=== PATIENT | female | born 1985 | race Caucasian/White ===

== ENCOUNTER → 2022-10-10 08:35 | Outpatient (REF) | payer OTHER, SELFPAY ==
--- NOTE | 2022-10-10 08:43 | ECG_ITS ---
Test Reason : palpitations Blood Pressure : / mmHG Vent. Rate : 114 BPM Atrial Rate : 114 BPM P-R Int : 126 ms QRS Dur : 082 ms QT Int : 330 ms P-R-T Axes : 048 044 045 degrees QTc Int : 454 ms Sinus tachycardia Otherwise normal ECG No previous ECGs available Referred By: Cha Adams Electronically Signed By:REI THEODORE
[2022-10-10 08:49] LABS: MANUAL DIFF FLAG NO
[2022-10-10 09:16] LABS: Basophils Absolute Auto 0.1 X10*3/uL (0.0-0.2); Basophils Percent Auto 0.9 % (0-2); Eosinophils Absolute Auto 0.2 X10*3/uL (0.0-0.4); Eosinophils Percent Auto 1.4 % (0-4); Hematocrit 40.4 % (37.0-47.0); Imm Gran Abs Auto 0.05 X10*3/uL (0.00-0.03); Imm Gran Pct Auto 0.4 % (0.0-0.4); Lymphocytes Absolute Auto 2.5 X10*3/uL (1.2-4.9); Lymphocytes Percent Auto 22.2 % (20-40); Mean Corpuscular HGB Conc 32.2 g/dl (31.0-35.0); Mean Corpuscular Hemoglobin 29.6 pg (27.0-33.0); Mean Platelet Volume 8.8 fL (9.4-12.3); Monocytes Absolute Auto 0.4 X10*3/uL (0.1-1.2); Monocytes Percent Auto 3.8 % (2-11); Neutrophils Absolute Auto 8.1 x10*3/uL (2.0-8.3); Neutrophils Percent Auto 71.3 % (45-73); Platelet Count 417 X10*3/uL (160-400); Red Blood Count 4.39 X10*6/uL (4.20-5.50); White Blood Count 11.4 X10*3/uL (4.8-10.8)
[2022-10-10 10:08] LABS: Alanine Aminotransferase 17 U/L (0-31); Albumin Level 4.7 g/dL (3.5-5.0); Alkaline Phosphatase 82 U/L (39-117); Anion Gap 14 (12-20); Aspartate Amino Transferase 18 U/L (5-31); Bilirubin Total 0.6 mg/dL (0.0-1.0); Blood Urea Nitrogen 9 mg/dL (9-16); Calcium 9.8 mg/dL (8.4-10.2); Carbon Dioxide 25 mmol/L (22-29); Chloride 104 mmol/L (96-108); Cholesterol 212 mg/dL; Estimated Glomerular Filt Rate > 60; Glucose Fasting 107 mg/dL (60-99); HDL Cholesterol 67 mg/dL; LDL Cholesterol Calculated 131 mg/dl; Potassium 4.3 mmol/L (3.3-5.1); Sodium 139 mmol/L (135-145); TSH reflex Free T4 1.73 uIU/mL (0.32-4.0); Total Protein 7.8 g/dL (6.5-8.0); Triglycerides 71 mg/dL; Vitamin D 25-OH Total 40.5 ng/mL (>30)
[2022-10-10 10:26] LABS: Folate 15.8 ng/mL (> or = 4.0); Vitamin B12 899 pg/mL (200-900)
== END ==
LOC: HO.CARD 08:35
PROVIDERS: PCP Nurse Practitioner Family; Visit Provider Nurse Practitioner Family
DX: R00.2 Palpitations (principal); Z76.89 Persons encountering health services in other specified circumstances
CPT/HCPCS: 36415; 80053; 80061; 82306; 82607; 82746; 84443; 85025; 93005

== ENCOUNTER 2022-10-11 11:54 | Outpatient (REF) | payer OTHER, SELFPAY ==
[2022-10-11 12:52] LABS: Estimated Average Glucose 91 mg/dL; Hemoglobin A1c % 4.8 %
== END 2022-10-11 11:55 | disposition home or self-care (01) ==
LOC: HO.LAB 11:54
PROVIDERS: PCP Nurse Practitioner Family; Visit Provider Nurse Practitioner Family
DX: R73.01 Impaired fasting glucose (principal)
CPT/HCPCS: 36415; 83036

== ENCOUNTER 2023-01-13 12:44 | Outpatient (REF) | payer OTHER, SELFPAY ==
[2023-01-14 06:51] LABS: CT PCR NOT DETECTED (Not Detect.); NG PCR NOT DETECTED (Not Detect.)
[2023-01-14 10:37] LABS: BV Int Neg Control Negative (Negative); BV Int Pos Control Positive (Positive)
[2023-01-18 06:04] LABS: HPV mRNA E6/E7 rflx Not Detected (Not Detected)
== END 2023-01-13 12:45 | disposition home or self-care (01) ==
LOC: HO.LNP 12:44
PROVIDERS: PCP Nurse Practitioner Family; Visit Provider Advanced Practice Midwife
DX: Z01.419 Encounter for gynecological examination (general) (routine) without abnormal findings (principal); Z11.51 Encounter for screening for human papillomavirus (HPV); Z20.2 Contact with and (suspected) exposure to infections with a predominantly sexual mode of transmission; E66.9 Obesity, unspecified; R00.2 Palpitations
CPT/HCPCS: 0353U; 87480; 87510; 87624; 87660; 88142

== ENCOUNTER 2023-10-07 13:46 | Outpatient (AMB) | payer OTHER, SELFPAY ==
[2023-10-07 13:47] VITALS: BP 146/100; PULSE 104; O2SAT 98; BMI 35.2
--- NOTE | 2023-10-07 13:47 | MHC.PC.OV ---
Vital Signs 10/07/23 13:47 10/07/23 14:08 Height 5 ft 4 in Weight 205 lb 4 oz BMI 35.2 BP 146/100 H 142/92 H Blood Pressure Location Rt brachial Lt brachial Position Sitting Sitting Pulse 104 H Pulse Source Pulse Oximeter Pulse Oximetry (%) 98 Oxygen Delivery Method Room Air Intake Visit Reasons: Annual exam Epic Manager Required: No Accompanied by: Self / Same As Patient Allergies amoxicillin Allergy (Intermediate, Verified 10/07/23 13:59) Hives azithromycin Allergy (Intermediate, Verified 10/07/23 13:59) Hives sertraline Adverse Reaction (Mild, Verified 10/07/23 13:59) anxiety increase Medication List - Last Reconciled 10/07/23 by MIRIAN Osborne cholecalciferol (vitamin D3) 25 mcg PO DAILY propranolol 10 mg PO BID PRN Tobacco use date assessed: 03/05/23 Dental Screening Dental Screen Date: 10/07/23 Did you have a dental visit in the last 12 months?: Yes Did you have a dental problem in the last 6 months where you did not have access to dental care?: No Was dental information given to patient?: Patient has dentist HPI Annual exam HPI Details Patient is a 38-year-old female who presents today for physical exam. Pap smear normal 12/2022 with [facility]. Patient declined tetanus vaccine. Reports systolic blood pressures at home in 120s. Interested in dermatology referral for face up knee. No shortness of breath or chest pain. Medical history significant for anxiety, intermittent palpitations, elevated fasting glucose. [facility] Medical History (Updated 10/07/23 @ 14:34 by MIRIAN Osborne) Obesity (BMI 30.0-34.9) Encounter to establish care Surgical History History of loop electrosurgical excision procedure (LEEP) History of cholecystectomy Previous section Family History Mother Diabetes Hypertension Father Hypertension Other Mental health disorder Social History Housing: House Alcohol intake: current Alcohol intake frequency: a few times a month Patient Tobacco Use Status: Former Tobacco user Tobacco use type: Cigarette Years Smoked: pt quit 15 years ago. e-Cigarette/Vaping Use: Never Used Second Hand Smoke Exposure: Yes service: No Current occupational status: employed Cognitive needs: No Hearing needs: No Vision needs: No Female Reproductive History Menstrual Age of Menarche: 15 Questionnaire Thrive Questionnaire Date Thrive assessed: 03/05/23 LEWIS-7 AMB Questionnaire LEWIS-7 Date LEWIS - 7 assessed: 03/05/23 Source: Developed by Drs. Manjit Hanna, Mary Alice Salcedo, Leon Kingston and colleagues, with an educational natividad from [employer]. Review of Systems Const Denies body aches, Denies chills, Denies fever(s) and Denies headache(s) Eyes Denies change in vision ENT Denies dizziness, Denies otalgia, Denies headache(s), Denies nasal discharge, Denies sinus pain and Denies sore throat Card Denies chest pain, Denies edema, Denies lightheadedness and Denies dyspnea Resp Denies cough, Denies dyspnea and Denies wheezing GI Denies abdominal pain, Denies constipation, Denies diarrhea, Denies nausea and Denies vomiting Denies dysuria Musc Denies myalgias Skin/Breast Reports as per HPI Neuro Denies dizziness and Denies headache(s) Aller/Immun Denies wheezing Physical exam (Primary Care) Vital Signs: Last Vital Signs Pulse 104 H 10/07/23 13:47 BP 146/100 H 10/07/23 13:47 Pulse Ox 98 10/07/23 13:47 Oxygen Delivery Method Room Air 10/07/23 13:47 BMI result Body Mass Index 35.2 Tobacco/Smoking Status: Tobacco use Status Tobacco use date assessed 03/05/23 03/05/23 10:10 Patient Tobacco Use Status Former Tobacco user 03/05/23 10:10 Tobacco use type Cigarette 03/05/23 10:10 e-Cigarette/Vaping Use Never Used 03/05/23 10:10 Thrive Assessment: Date of Thrive Assessment Date Thrive assessed 03/05/23 03/05/23 10:10 Const General: cooperative and no acute distress Orientation/consciousness: patient oriented x3 HENMT Head: Yes normocephalic and Yes atraumatic Ears: TM's normal bilaterally Face and sinus: Yes sinuses nontender Mouth: oropharynx normal and moist mucous membranes Throat: Yes posterior oropharynx normal Eyes General: appearance normal, both eyes and all related structures Pupils: Equal, round and reactive pupils present EOM: EOMs intact bilaterally Neck Neck: Yes normal visual inspection, Yes full ROM and Yes no lymphadenopathy Thyroid: Thyroid normal Resp Effort & Inspection: normal respiratory effort and able to speak in complete sentences Auscultation: clear to auscultation bilaterally, no crackles, no rales, no rhonchi and no wheezes Cardio Rate: regular rate Rhythm: regular rhythm Heart sounds: S1 normal heart sound present, S2 normal heart sound present and no murmurs GI Palpation (GI): Soft to palpation, not firm, nontender, no guarding, not rigid and no hepatosplenomegaly Auscultation: normal bowel sounds General: No CVA tenderness Back/Spine/Pelvis Back: No CVA tenderness Skin Other: Moderate acne noted to face Neuro General: patient oriented x3 Cranial nerves: Yes Equal, round and reactive pupils present Gait exam (Neuro): Normal gait present Extrem General: Yes full ROM and No edema Assessment and Plan Assessment & Plan (1) Intermittent palpitations: Code(s): R00.2 - Palpitations Plan: Patient reports intermittent heart palpitations with anxiety - stable with propranolol b.i.d. p.r.n. 09/2022 Sinus tachycardia Otherwise normal ECG No previous ECGs available (2) Anxiety: Code(s): F41.9 - Anxiety disorder, unspecified Plan: Stable with propranolol b.i.d. p.r.n. (3) Adult general medical exam: Code(s): Z00.00 - Encounter for general adult medical examination without abnormal findings Plan: Repeat in 1 year (4) Elevated fasting glucose: Code(s): R73.01 - Impaired fasting glucose Plan: Fasting blood work ordered (5) Obesity (BMI 30-39.9): Code(s): E66.9 - Obesity, unspecified Plan: Healthy food choices and exercise as tolerated (6) Acne: Code(s): L70.9 - Acne, unspecified Plan: Dermatology referral Orders: Orders Vitamin D 25-OH Total Today Z00.00 - Encounter for general adult medical examination without abnormal findings Comprehensive [place]. Panel Fast Today Z00.00 - Encounter for general adult medical examination without abnormal findings Vitamin B12 and Folate Today Z00.00 - Encounter for general adult medical examination without abnormal findings TSH reflex Free T4 Today Z00.00 - Encounter for general adult medical examination without abnormal findings Lipid Panel Today Z00.00 - Encounter for general adult medical examination without abnormal findings Complete Blood Count Auto Diff Today Z00.00 - Encounter for general adult medical examination without abnormal findings Referrals Dermatology Referral L70.9 - Acne, unspecified Coding Level of Care Code Est Pt Prev Care 18-39y(90499) Diagnoses Intermittent palpitations R00.2 Anxiety F41.9 Adult general medical exam Z00.00 Elevated fasting glucose R73.01 Obesity (BMI 30-39.9) E66.9 Acne L70.9
[2023-10-07 14:08] VITALS: BP 142/92
== END 2023-10-07 14:12 | disposition home or self-care (01) ==
PROVIDERS: Visit Provider Nurse Practitioner Family
DX: Z00.00 Encounter for general adult medical examination without abnormal findings (principal); E66.9 Obesity, unspecified; Z68.35 Body mass index [BMI] 35.0-35.9, adult; R00.2 Palpitations; F41.9 Anxiety disorder, unspecified; R73.01 Impaired fasting glucose; L70.9 Acne, unspecified
CPT/HCPCS: 99395

== ENCOUNTER 2024-01-19 12:53 | Outpatient (AMB) | payer OTHER, SELFPAY ==
[2024-01-19 13:02] VITALS: BP 134/90; BMI 35.7
--- NOTE | 2024-01-19 13:02 | A.OFFVIS_ITS ---
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 Required: No Information Interpreted: non-clinical & clinical Instructor Adjunct Surgical Technician: Instructor Adjunct Surgical Technician Present ([facility]) Allergies amoxicillin Allergy (Intermediate, Verified 01/19/24 13:04) Hives azithromycin Allergy (Intermediate, Verified 01/19/24 13:04) Hives sertraline Adverse Reaction (Mild, Verified 01/19/24 13:04) anxiety increase Medication List - Last Reconciled 01/19/24 by Ruth Ann Tompkins CNM cholecalciferol (vitamin D3) 25 mcg PO DAILY propranolol 10 mg PO BID PRN Is last menstrual period known: Yes Last menstrual period: 12/31/23 Post menopausal: No HPI 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 She has no worries about STDs or any infections whatsoever she had an abnormal Pap smear 13 14 years ago and had a LEEP but they have always been normal since and were negative in 2019 she believes and we did 1 last year was negative with negative HPV. She tries to walk 3-4 miles every day and if she can not she tries to do exercise with weights and bands indoors. She does have some what she calls white coat hypertension but when she checks it at home it is always fine. She does have propranolol that she can take if she is anxious and gets palpitations but she does not take it very much. [facility] Medical History Obesity (BMI 30.0-34.9) Encounter to establish care Surgical History History of loop electrosurgical excision procedure (LEEP) History of cholecystectomy Previous section Family History Mother Diabetes Hypertension Father Hypertension Other Mental health disorder Social History Housing: House Alcohol intake: current Alcohol intake frequency: a few times a month Patient Tobacco Use Status: Former Tobacco user Tobacco use type: Cigarette Years Smoked: pt quit 15 years ago. e-Cigarette/Vaping Use: Never Used Second Hand Smoke Exposure: Yes service: No Current occupational status: employed Cognitive needs: No Hearing needs: No Vision needs: No Female Reproductive History Menstrual Age of Menarche: 15 Duration of menses: 3-5 days Date of last menstrual period: 12/31/23 control method: none Total pregnancies: 2 Full term: 2 Number of Living Children: 2 Date of last pap smear: 01/15/23 (negative) History of abnormal pap smear: Yes Physical Exam Vital Signs: Last Vital Signs BP 134/90 H 01/19/24 13:02 BMI result Body Mass Index 35.7 Const General: healthy appearing, comfortable, no acute distress, well developed and alert Nutritional Appearance: average body habitus Orientation/consciousness: patient oriented x3 Limitations: no limitations HEENT Head: Yes normocephalic Neck Neck: Yes normal visual inspection Chest Chest palpation & inspection: normal inspection of the chest Breast/axilla inspection: normal inspection of the breasts and normal inspection of the axillae Breast/axilla palpation: normal palpation of the breasts and normal palpation of the axillae Resp Effort & Inspection: normal respiratory effort GI Inspection: Yes normal to inspection, No Abdominal wall edema and No distended Palpation (GI): Soft to palpation and nontender General: Yes bladder normal to palpation External Female Exam: normal external appearance and normal appearance of the urethra Speculum Exam - Vagina: normal appearance of the vagina, normal palpation and normal vaginal discharge Speculum Exam - Cervix: normal appearance of the cervix, normal palpation and nontender Bimanual exam- vagina & uterus: normal bimanual exam, normal palpation, uterine size normal, bladder normal to palpation, consistency normal, normal palpation, uterine mobility normal, uterine shape normal, No Cervical tenderness present, non-tender and no cervical motion tenderness Bimanual Exam- Adnexa, other: normal adnexae, no masses, normal and No adnexal tenderness Neuro General: patient oriented x3 Assessment & Plan Assessment & Plan (1) Obesity (BMI 30-39.9): Code(s): E66.9 - Obesity, unspecified (2) History of loop electrosurgical excision procedure (LEEP): Comment: 01/13/2023 Pap is negative with negative HPV. Code(s): Z98.890 - Other specified postprocedural states (3) Cervical cancer screening: Comment: 01/13/2023 Pap is negative with negative HPV. Code(s): Z12.4 - Encounter for screening for malignant neoplasm of cervix (4) Intermittent palpitations: Code(s): R00.2 - Palpitations (5) Elevated blood pressure reading: Comment: Patient states she has white coat hypertension. States she is in touch with her primary about it and checks it at home and it is always normal and knows that she would need to follow-up if this was not the case. 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 She has no worries about STDs or any infections whatsoever she had an abnormal Pap smear 13 14 years ago and had a LEEP but they have always been normal since and were negative in 2020 she believes and we did 1 last year was negative with negative HPV. She tries to walk 3-4 miles every day and if she can not she tries to do exercise with weights and bands indoors. She does have some what she calls white coat hypertension but when she checks it at home it is always fine. She does have propranolol that she can take if she is anxious and gets palpitations but she does not take it very much. Reviewed kathleen menopausal changes and what to expect going forward reviewed changes in her cycles and range of normals and main thing of concern would be if she ever missed a period for more than 3 months certainly to rule out but also it would be oliver to keep an eye on ones weighed in to ensure no increased weight gain is that would be the number one Reason we see missed periods. Coding Level of Care Code Est Pt Prev Care 18-39y([id number]) Diagnoses Obesity (BMI 30-39.9) E66.9 History of loop electrosurgical excision procedure (LEEP) Z98.890 Cervical cancer screening Z12.4 Intermittent palpitations R00.2 Elevated blood pressure reading R03.0 Anxiety F41.9
== END 2024-01-19 14:06 | disposition home or self-care (01) ==
LOC: HO.HWSM 12:53
PROVIDERS: PCP Nurse Practitioner Family; Visit Provider Advanced Practice Midwife
DX: Z01.419 Encounter for gynecological examination (general) (routine) without abnormal findings (principal); R00.2 Palpitations; E66.9 Obesity, unspecified
CPT/HCPCS: 99395

== ENCOUNTER → 2024-01-19 12:53 | Outpatient (BNVA) | payer OTHER, SELFPAY | PROVIDERS: PCP Nurse Practitioner Family; Visit Provider Advanced Practice Midwife ==